=== PATIENT | female | born 1985 | race Caucasian/White ===

== ENCOUNTER 2017-05-20 20:54 | Emergency (ER) | payer MEDICAID, SELFPAY ==
[2017-05-20 20:55] VITALS: BP 133/89; PULSE 110; RESP 14; TEMP 37.1; O2SAT 97; BMI 34.2
--- NOTE | 2017-05-20 22:19 | NURSING ---
PT STATED SHE WAS INFORMED THERE WAS A SHORTER WAIT AT [facility] AND SHE WAS GOING TO GO THERE TO BE SEEN. PT ENCOURAGED TO COME BACK AT ANY TIME TO BE EVALUATED.
== END 2017-05-21 00:14 | disposition left against medical advice (07) ==
LOC: ED 05-21 00:10
PROVIDERS: Emergency Provider Emergency Medicine; Family Provider Family Medicine; PCP Family Medicine
DX: R69 Illness, unspecified (principal)